=== PATIENT | female | born 1975 | race Caucasian/White ===

== ENCOUNTER 2023-09-27 12:08 | Outpatient (CLI) | payer BC, SELFPAY ==
--- NOTE | 2023-09-27 12:21 | XR_ITS ---
FINAL REPORT CLINICAL HISTORY: Ingrown toenail infection FINDINGS: RIGHT FOOT 3 views of the right foot were obtained. There is no acute fracture or dislocation. Visualized joint spaces are normally aligned. Soft tissues are unremarkable. IMPRESSION: No acute bony abnormality. Reviewed, Interpreted and Dictated by Jose Antonio Jiang MD Transcribed by Sylvia Charles Authenticated and [facility]
--- NOTE | 2023-09-27 12:21 | XR_ITS ---
FINAL REPORT CLINICAL HISTORY: Ingrown toenail infection FINDINGS: LEFT FOOT Three views of the left foot demonstrate no acute fracture or dislocation. There is a mild hallux valgus deformity. The visualized joint spaces are normally aligned. The soft tissues are unremarkable. IMPRESSION: No acute bony abnormality. Reviewed, Interpreted and Dictated by Jose Antonio Jiang MD Transcribed by Sylvia Charles Authenticated and [facility]
[2023-09-27 12:41] LABS: Basophils # 0.1 K/mm3 (0-0.2); Basophils % 1.6 % (0.1-2.0); Eosinophils # 0.1 K/mm3 (0.0-0.4); Eosinophils % 1.4 % (0.1-12.0); Hematocrit 42.8 % (37.0-47.0); Lymphocytes # 1.5 K/mm3 (0.7-4.5); Lymphocytes % 20.1 % (10-50); Mean Corpuscular HGB Conc 32.8 g/dL (31.8-35.4); Mean Corpuscular Hemoglobin 30.5 pg (27.0-31.2); Mean Platelet Volume 7.2 fl (7.4-10.4); Monocytes # 0.5 K/mm3 (0.1-1.0); Monocytes % 6.2 % (1.7-9.3); Neutrophils # 5.4 K/mm3 (1.8-7.8); Neutrophils % 70.7 % (37.0-80.0); Platelet Count 362 K/mm3 (142-424); White Blood Count 7.7 K/mm3 (4.8-10.8)
[2023-09-27 13:35] LABS: Chloride 107 mmol/L (98-107); Potassium 4.7 mmoL/L (3.5-5.1); Sodium 137 mmol/L (136-145)
[2023-09-27 13:38] LABS: Alanine Aminotransferase 23 U/L (12-78); Albumin Level 3.9 g/dl (3.5-5.0); Albumin/Globulin Ratio 1.7 (1.1-1.8); Alkaline Phosphatase 52 U/L (38-126); Anion Gap 5.7 mEq/L (5-15); Aspartate Amino Transferase 35 U/L (14-36); Bilirubin,Total 0.9 mg/dl (0.2-1.3); Blood Urea Nitrogen 12 mg/dl (7-17); Calcium 9.6 mg/dl (8.4-10.2); Carbon Dioxide 29 mmol/L (22.0-30.0); Estimated Glomerular Filt Rate 77 ml/min (>60); GFR (African American) 93 ML/MIN (>60); Globulin 2.3 g/dL (1.3-3.2); Glucose 93 mg/dl (74-100); Total Protein,Serum 6.2 g/dl (6.3-8.2)
[2023-09-27 13:46] LABS: C-Reactive Protein 1.6 mg/L (0-4)
[2023-09-27 14:05] LABS: Erythrocyte Sedimentation Rate 11 mm/hr (0-20)
== END 2023-09-27 23:59 | disposition home or self-care (01) ==
PROVIDERS: PCP Family Medicine; Visit Provider Nurse Practitioner
DX: L60.0 Ingrowing nail (principal); M79.671 Pain in right foot; M79.672 Pain in left foot
CPT/HCPCS: 36415; 73630; 80053; 83036; 85025; 85651; 86140

== ENCOUNTER 2023-10-25 07:52 | Outpatient (CLI) | payer BC, SELFPAY ==
--- NOTE | 2023-10-25 07:52 | MR_ITS ---
FINAL REPORT CLINICAL HISTORY: Cellulitis of Right Toe, 4TH TOE COMPARISON: None FINDINGS: Multiplanar MR imaging of the right foot was performed with and without contrast. There is no evidence of fracture, bone bruise or marrow edema. There is no evidence of a replacement to suggest osteomyelitis. The musculature is intact. There is mild degenerative change present in the foot. There is soft tissue swelling in the distal fourth toe, without evidence of enhancement or fluid collection. No soft tissue mass or cyst is identified. There is no evidence of abnormal contrast enhancement. IMPRESSION: No acute bony abnormality. No evidence of abnormal contrast enhancement. Soft tissue swelling in the distal fourth toe without evidence of enhancement or fluid collection. Reviewed, Interpreted and Dictated by Sheldon Rosenthal III, MD Transcribed by Keeley Williamson Authenticated and . [facility]
[2023-10-25] MEDS: GADOTERIDOL INJ 17ML SYRINGE 13 ML IV (08:44)
[2023-10-25] MEDS: SODIUM CHLORIDE 0.9% 10ML SYR (RAD ONLY) 10 ML IV (08:44)
== END 2023-10-25 23:59 | disposition home or self-care (01) ==
LOC: RAD 07:52
PROVIDERS: PCP Family Medicine; Visit Provider Nurse Practitioner
DX: L03.031 Cellulitis of right toe (principal); M79.674 Pain in right toe(s); M79.675 Pain in left toe(s)
CPT/HCPCS: 73720; A9576

== ENCOUNTER 2024-01-11 10:31 | Outpatient (POV) | payer BC, SELFPAY | END 2024-01-11 23:59 | disposition home or self-care (01) | LOC: SC 10:31 | PROVIDERS: PCP Family Medicine; Visit Provider Dermatology | DX: Z00.00 Encounter for general adult medical examination without abnormal findings (principal) ==